=== PATIENT | female | born 1965 | race African-American/Black ===

== ENCOUNTER 2024-03-07 17:44 | Emergency (ER) | payer MEDICAID ==
[~2024-03-07] VITALS: Ht 180.3 cm; Wt 56.2 kg
[2024-03-07] MEDS: TRAMADOL HCL 50 MG TAB PO STA (19:07)
[2024-03-07 19:56] VITALS: BP 110/80; PULSE 73; RESP 21; TEMP 98.6; O2SAT 100
== END 2024-03-07 19:50 | disposition home or self-care (01) ==
LOC: ER 17:52
DX: M25.522 Pain in left elbow (principal); S80.212A Abrasion, left knee, initial encounter; M25.562 Pain in left knee; W06.XXXA Fall from bed, initial encounter; Y93.84 Activity, sleeping; Y92.89 Other specified places as the place of occurrence of the external cause; I10 Essential (primary) hypertension; R94.31 Abnormal electrocardiogram [ECG] [EKG]
CPT/HCPCS: 93005; 99283